=== PATIENT | male | born 1955 | race Caucasian/White ===

== ENCOUNTER 2019-12-28 11:39 | Emergency (ER) | payer OTHER ==
--- NOTE | 2019-12-28 12:12 | EDM.PDOC ---
ED HPI GENERAL MEDICAL PROBLEM - General Chief Complaint: Laceration Stated Complaint: FINGER WON'T STOP BLEEDING Time Seen by Provider: 12/28/19 11:45 Source of Information: Reports: Patient History Limitations: Reports: No Limitations - History of Present Illness INITIAL COMMENTS - FREE TEXT/NARRATIVE: Patient comes into the emergency department with complaints of a laceration to his right index finger.Patient states that he was using a drill and the drill bit slipped and ended up causing a laceration to his first digit on his right hand middle portion of the finger. Patient states that he was unable to control the bleed at home however was able to get it under control with direct pressure. Patient denies any CMS or range of motion concerns. He denies any numbness or tingling up the arm. He states that he has minimal pain and does not hurt to move it. Patient denies any COVID-19 symptoms and states he has been relatively healthy and has no other concerns or complaints today. 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 Constitutional: Reports: No Symptoms Eyes: Reports: No Symptoms Ears: Reports: No Symptoms Respiratory: Reports: No Symptoms Cardiovascular: Reports: No Symptoms GI/Abdominal: Reports: No Symptoms Musculoskeletal: Reports: No Symptoms Neurological: Reports: No Symptoms Psychiatric: Reports: No Symptoms ED EXAM, GENERAL - Physical Exam Exam: See Below Exam Limited By: No Limitations General Appearance: Alert, WD/WN, No Apparent Distress Throat/Mouth: Perioral Cyanosis Head: Atraumatic Respiratory/Chest: No Respiratory Distress, Chest Non-Tender Peripheral Pulses: 4+: Radial (L), Radial (R) Back Exam: Full Range of Motion Extremities: Normal Inspection, Normal Range of Motion, No Pedal Edema, Normal Capillary Refill Neurological: Alert, Oriented, Normal Cognition, Normal Gait Psychiatric: Normal Affect, Normal Mood Skin Exam: Warm, Dry, Normal Color, Other (laceration-right index finger- mid portion of phalange. mild bleeding, smooth edges. ROM and CMS intact. no redness or swelling noted) ED TRAUMA EXTREMITY PROCEDURES - Laceration/Wound Repair Right Middle Digit - 2nd (Index) Appearance: Superficial, Linear, Clean Distal NVT: Neuro & Vascular Intact Anesthetic Type: Local Local Anesthesia - Lidocaine (Xylocaine): 1% Plain Local Anesthetic Volume: 4cc Skin Prep: Isopropyl Alcohol (Alcohol) Exploration/Debridement/Repair: Wound Explored, No Foreign Material Found Closed With: Sutures Suture Size: 4-0 # of Sutures: 5 Suture Type: Simple Sterile Dressing Applied: Nurse Tetanus Status Addressed: Yes Complications: No Course - Orders/Labs/Meds Meds: Medications Discontinued Medications Generic Name Dose Route Start Last Admin Trade Name Chuyita PRN Reason Stop Dose Admin Lidocaine HCl 5 ml 12/28/19 11:50 Xylocaine-Mpf 1% INJECT 12/28/19 11:51 ONETIME ONE Departure - Departure Time of Disposition: 12:05 Disposition: Home, Self-Care 01 Condition: Good Clinical Impression: Laceration - Discharge Information *PRESCRIPTION DRUG MONITORING PROGRAM REVIEWED*: Not Applicable *COPY OF PRESCRIPTION DRUG MONITORING REPORT IN PATIENT MARIA T: Not Applicable Instructions: Laceration Care, Adult, [id number], Sutures, [place], or Adhesive Wound Closure, [id number] Referrals: Guerita Gayle, [Primary Care Provider] - Forms: ED Department Discharge Additional Instructions: 1. Rest 2. Keep the area clean and dry 3. Can use tylenol and ibuprofen as needed for pain and discomfort 4. Diet as tolerated 5. Activity as tolerated 6. Elevated the injured area above the level of the heart to decrease swelling and discomfort if applicable 7. Can use ice 3-4 times a day at 20-minute intervals to help with any swelling and discomfort 8. Follow-up with your primary care provider symptoms continue or to progress 9. Discharge information has been provided regarding your injury and wound care has been provided 10. Avoid an public pools or hot tubes until wound is healed. 11. Follow up in the Clinic in 10 days for removal of sutures - Assessment/Plan Assessment:: 1. laceration Plan: 1. Wound cleansing completed 2. Laceration repair completed 3. Tdap vaccine history completed 4. Education regarding wound care, dressing changes, OTC medications, activity, diet, follow up care and when to seek care if warrented provided 5. Patient is to return to the clinic in 10 days to have sutures site evaluated and removed 6. Patient was encouraged to call or return if any questions or concerns arise.
== END 2019-12-28 12:20 | disposition home or self-care (01) ==
LOC: VM.ED 11:39
DX: S61.210A Laceration without foreign body of right index finger without damage to nail, initial encounter (principal); W29.8XXA Contact with other powered hand tools and household machinery, initial encounter
CPT/HCPCS: 12001; 99282-25; J2001

== ENCOUNTER 2020-07-01 01:40 | Emergency (ER) | payer OTHER ==
[2020-07-01] MEDS ORDERED: Orphenadrine 60 MG/2 ML Inj IM ONE (01:57)
[2020-07-01] MEDS ORDERED: HYDROmorphone 1 MG/ML Syringe SUBCUT ONE (01:57)
[2020-07-01] MEDS ORDERED: Take Home: Cyclobenzaprine 10 MG Tab, 4 Tab Pack PO ONE (02:02)
[2020-07-01] MEDS ORDERED: Take Home: Acetaminophen/HYDROcodone 325-10 MG, 5 Tab Pack PO ONE (02:02)
--- NOTE | 2020-07-01 02:24 | EDM.PDOC ---
ED HPI GENERAL MEDICAL PROBLEM - General Chief Complaint: General Stated Complaint: Neck pain Time Seen by Provider: 07/01/20 01:45 Source of Information: Reports: Patient History Limitations: Reports: No Limitations - History of Present Illness INITIAL COMMENTS - FREE TEXT/NARRATIVE: Pt. presents to ER with complaints of neck pain. Pt. states that the discomfort is located in the L lateral neck and shoulder area. He states that he has been having neck pain for a couple of days. He thinks he caused it hanging sheetrock. He states that initially the pain was located in the R side of his neck. He did have some tingling in the tips of his ring fingers in both hands, but states that this has resolved. Denies any chest pain. He states that the discomfort is much worse with rotation of the head, particularly to the L. He states that the pain is worse with palpation. He states that he has taken ibuprofen tonight with minimal improvement. Denies any specific trauma to area. No falls or accident. No current neuro symptoms. Denies any fever or chills. Onset Date: 06/29/20 Location: Reports: Neck Quality: Reports: Ache, Throbbing Severity: Severe Treatments MAMMA LOGIST: Reports: Other (see below) Other Treatments MAMMA LOGIST: Ibuprofen 800mg left side of neck Pain Score (Numeric/FACES): 9 - Related Data Allergies Allergy/AdvReac Type Severity Reaction Status Date / Time No Known Allergies Allergy Verified 07/01/20 02:04 Home Meds: Home Meds Aspirin 325 mg PO DAILY 12/28/19 [History] Cholecalciferol (Vitamin D3) [Vitamin D3] 400 unit PO DAILY 12/28/19 [History] Furosemide 20 mg PO DAILY 12/28/19 [History] LORazepam [Lorazepam] 0.25 mg PO BEDTIME 12/28/19 [History] Metoprolol Tartrate 12.5 mg PO BID 12/28/19 [History] Sertraline [Zoloft] 200 mg PO DAILY 12/28/19 [History] atorvaSTATin Calcium [Atorvastatin Calcium] 40 mg PO BEDTIME 12/28/19 [History] Past Medical History Cardiovascular History: Reports: Hypertension Psychiatric History: Reports: Depression ED ROS GENERAL - Review of Systems Review Of Systems: See Below Constitutional: Reports: No Symptoms HEENT: Reports: No Symptoms Respiratory: Reports: No Symptoms Cardiovascular: Reports: No Symptoms Endocrine: Reports: No Symptoms GI/Abdominal: Reports: No Symptoms : Reports: No Symptoms Musculoskeletal: Reports: Neck Pain Skin: Reports: No Symptoms Neurological: Reports: No Symptoms. Denies: Headache, Numbness, Paresthesia Psychiatric: Reports: No Symptoms Hematologic/Lymphatic: Reports: No Symptoms Immunologic: Reports: No Symptoms ED EXAM, GENERAL - Physical Exam Exam: See Below Exam Limited By: No Limitations General Appearance: Alert, WD/WN, No Apparent Distress Neck: Tender Lateral, Tender Midline, Other (Decreased ROM. Exquisitely tender with movement of the head/neck. Muscle spasm to L lateral cervical muscles/L trapezius. ). No: Full Range of Motion Course - Vital Signs Last Recorded V/S: Last Vital Signs Temp 36.3 C 07/01/20 01:40 Pulse 76 07/01/20 01:40 Resp 16 07/01/20 01:40 BP 165/84 H 07/01/20 01:40 Pulse Ox 95 07/01/20 01:40 - Orders/Labs/Meds Meds: Medications Discontinued Medications Generic Name Dose Route Start Last Admin Trade Name Chuyita PRN Reason Stop Dose Admin Hydrocodone Bitart/Acetaminophen 1 packet 07/01/20 02:02 07/01/20 02:14 Take Home: Acetaminophen/Hydrocodone 325-10mg PO 07/01/20 02:03 1 packet ONETIME ONE Administration Cyclobenzaprine HCl 1 packet 07/01/20 02:02 07/01/20 02:16 Take Home: Cyclobenzaprine 10 Mg, 4 Tab Pack PO 07/01/20 02:03 1 packet ONETIME ONE Administration Hydromorphone HCl 1 mg 07/01/20 01:57 07/01/20 02:11 Dilaudid SUBCUT 07/01/20 01:58 1 mg ONETIME ONE Administration Orphenadrine Citrate 60 mg 07/01/20 01:57 07/01/20 02:12 Norflex IM 07/01/20 01:58 60 mg ONETIME ONE Administration Departure - Departure Time of Disposition: 02:30 Disposition: Home, Self-Care 01 Clinical Impression: Cervical radiculopathy - Discharge Information Instructions: Acetaminophen; Hydrocodone tablets or capsules, Cyclobenzaprine tablets, Cervical Radiculopathy, [id number] Referrals: PCP,Unobtain [Primary Care Provider] - Forms: ED Department Discharge Additional Instructions: [place] 10/325mg 1 every 4-6 hours a needed for pain. Flexeril 10mg 1 three times daily as needed for spasm. Ibuprofen 200mg 3 tabs every 6-8 hours Ice or heat for pain. Physical therapy will be in contact with you regarding an appointment. Sepsis Event Note (ED) - Evaluation Sepsis Screening Result: No Definite Risk - Focused Exam Vital Signs: Vital Signs Temp Pulse Resp BP Pulse Ox 07/01/20 01:40 36.3 C 76 16 165/84 H 95 - Problem List Review Problem List Initiated/Reviewed/Updated: Yes - Assessment/Plan Plan: [place] 10/325mg 1 every 4-6 hours a needed for pain. Flexeril 10mg 1 three times daily as needed for spasm. Ibuprofen 200mg 3 tabs every 6-8 hours Ice or heat for pain. Physical therapy will be in contact with you regarding an appointment.
== END 2020-07-01 02:28 | disposition home or self-care (01) ==
LOC: VM.ED 01:40
DX: M54.12 Radiculopathy, cervical region (principal); I10 Essential (primary) hypertension; F32.9 Major depressive disorder, single episode, unspecified; Z79.82 Long term (current) use of aspirin; Z79.899 Other long term (current) drug therapy
CPT/HCPCS: 96372; 99283; 99284; A9270-GY; J1170; J2360

== ENCOUNTER 2023-03-24 12:20 | Day surgery (SDC) | payer MEDICARE, BC ==
[~2023-03-24 12:20] MED LIST: Lactated Ringers 1,000 ML IV SCH; Propofol 200 MG/20 ML SDV ONE; fentaNYL 100 MCG/2 ML SDV ONE
[2023-03-24] MEDS ORDERED: Propofol 200 MG/20 ML SDV ONE (13:59)
[2023-03-24] MEDS ORDERED: Potassium Chloride Riders 0 ML ONE (13:59)
== END 2023-03-24 15:55 | disposition home or self-care (01) ==
LOC: VM.SDS 12:20
PROVIDERS: ATTEND Family Medicine
DX: Z12.11 Encounter for screening for malignant neoplasm of colon (principal); C15.5 Malignant neoplasm of lower third of esophagus; D12.5 Benign neoplasm of sigmoid colon; K21.9 Gastro-esophageal reflux disease without esophagitis; K29.50 Unspecified chronic gastritis without bleeding; I10 Essential (primary) hypertension; F32.A Depression, unspecified; E78.00 Pure hypercholesterolemia, unspecified; I25.10 Atherosclerotic heart disease of native coronary artery without angina pectoris; G47.00 Insomnia, unspecified; F41.9 Anxiety disorder, unspecified; G47.33 Obstructive sleep apnea (adult) (pediatric); Z98.890 Other specified postprocedural states; Z83.71 Family history of colonic polyps; Z80.0 Family history of malignant neoplasm of digestive organs; Z79.82 Long term (current) use of aspirin; Z79.899 Other long term (current) drug therapy
CPT/HCPCS: 00813; 43239; 45385; 88305; 88341; 88342; 88360; J2704; J3010; J7120; J3480